=== PATIENT | female | born 1975 | race American Indian/Alaskan Native ===

== ENCOUNTER 2016-10-07 19:16 | Emergency (ER) | payer BC | END 2016-10-07 19:34 | disposition left against medical advice (07) | LOC: ED 19:16 | DX: T22.011A Burn of unspecified degree of right forearm, initial encounter (principal); Z53.21 Procedure and treatment not carried out due to patient leaving prior to being seen by health care provider; X08.8XXA Exposure to other specified smoke, fire and flames, initial encounter; Y93.89 Activity, other specified; Y99.8 Other external cause status; Y92.89 Other specified places as the place of occurrence of the external cause ==

== ENCOUNTER 2016-12-10 11:50 | Outpatient (CLI) | payer BC ==
--- NOTE | 2016-12-10 14:17 | Mammography Report ---
IMPLANT MAMMOGRAM with CAD: History: Cancer screening. Comparison study is dated February 19, 2015. Bilateral breast imaging was done with standard and displacement technique. Parenchyma is symmetrically seen ventral to each implant. The implant contours are smooth. No suspicious findings or secondary signs of malignancy are seen. CONCLUSION: Negative implant mammogram. RECOMMENDATION: Routine follow-up. BI-RADS CATEGORY: 1 = Negative ACR BI-RADS MAMMOGRAPHIC CODES: 0 = Needs additional imaging evaluation; 1 = Negative; 2 = Benign; 3 = Probably benign; 4 = Suspicious; 5 = Malignant; 6 = Known biopsy-proven malignancy COMMENT: 1. Dense breast tissue, i.e., adenosis, fibrocystic changes, etc., may obscure an underlying neoplasm. 2. Approximately 10% of cancers are not detected with mammography. 3. A negative mammography report should not delay biopsy if a clinically suspicious mass is present. Comment: Patient follow up letters are generated in [facility].
== END 2016-12-10 11:51 | disposition home or self-care (01) ==
LOC: MAMMO 11:50
PROVIDERS: ATTEND Internal Medicine
DX: Z12.31 Encounter for screening mammogram for malignant neoplasm of breast (principal); Z98.82 Breast implant status
CPT/HCPCS: 77067; G0202

== ENCOUNTER 2017-01-25 06:28 | Emergency (ER) | payer BC ==
[2017-01-25 07:10] LABS: Basophils % (Auto) 0.5 % (0.0-1.8); Eosinophils % (Auto) 1.9 % (0.0-4.3); Hematocrit 35.8 % (30.3-42.9); Hemoglobin 11.8 gm/dl (10.1-14.3); Mean Corpuscular HGB Conc 33 % (30-34); Mean Corpuscular Hemoglobin 27 pg (28-32); Mean Corpuscular Volume 82 fl (79-97); Platelet Count 337 K/mm3 (140-440); Red Blood Count 4.35 M/mm3 (3.65-5.03); Red Cell Distribution Width 13.8 % (13.2-15.2); White Blood Count 8.5 K/mm3 (4.5-11.0)
[2017-01-25 07:27] LABS: Anion Gap 16 mmol/L; BUN/Creatinine Ratio 14; Blood Urea Nitrogen 10 mg/dL (7-17); Calcium 8.6 mg/dL (8.4-10.2); Carbon Dioxide 24 mmol/L (22-30); Glucose 89 mg/dL (65-100); Potassium 4.1 mmol/L (3.6-5.0); Sodium 140 mmol/L (137-145)
--- NOTE | 2017-01-25 08:43 | Emergency Department Report ---
ED General Adult HPI - General Chief complaint: Headache Stated complaint: HEAD PAIN Time Seen by Provider: 01/25/17 08:41 Source: patient Mode of arrival: Ambulatory Limitations: No Limitations - History of Present Illness Initial comments: Patient is a 41-year-old female no significant past medical history who presents with a buzzing sensation in her ears. Patient states that the sensation has been going on and off for the last several months. Patient states that it got worse the last 3 days. Patient states that she has a minor headache located in the back of her head is a 2/10 doesn't radiate and it occurs intermittently his was gradual. Patient denies having any nausea or vomiting. Patient denies having any vision changes. Severity scale (0 -10): 0 - Related Data Allergies Allergy/AdvReac Type Severity Reaction Status Date / Time lisinopril Allergy Swelling Unverified 12/10/16 11:51 ED Review of Systems ROS: Stated complaint: HEAD PAIN Other details as noted in HPI Constitutional: denies: chills, fever Eyes: denies: eye pain, eye discharge, vision change ENT: denies: ear pain, throat pain Respiratory: denies: cough, shortness of breath, wheezing Cardiovascular: denies: chest pain, palpitations Endocrine: no symptoms reported Gastrointestinal: denies: abdominal pain, nausea, diarrhea Genitourinary: denies: urgency, dysuria, discharge Musculoskeletal: denies: back pain, joint swelling, arthralgia Skin: denies: rash, lesions Neurological: as per HPI. denies: headache, weakness, paresthesias Psychiatric: denies: anxiety, depression Hematological/Lymphatic: denies: easy bleeding, easy bruising ED Past Medical Hx - Past Medical History Previous Medical History?: Yes Hx Hypertension: Yes Additional medical history: Sleep apnea - Surgical History Past Surgical History?: Yes Additional Surgical History: myomectomy, breast augmentation - Social History Smoking Status: Current Every Day Smoker Substance Use Type: None ED Physical Exam - General Limitations: No Limitations General appearance: alert, in no apparent distress - Head Head exam: Present: atraumatic, normocephalic - Eye Eye exam: Present: normal appearance - ENT ENT exam: Present: mucous membranes moist - Neck Neck exam: Present: normal inspection - Respiratory Respiratory exam: Present: normal lung sounds bilaterally. Absent: respiratory distress - Cardiovascular Cardiovascular Exam: Present: regular rate, normal rhythm. Absent: systolic murmur, diastolic murmur, rubs, gallop - GI/Abdominal GI/Abdominal exam: Present: soft, normal bowel sounds - Extremities Exam Extremities exam: Present: normal inspection - Back Exam Back exam: Present: normal inspection - Neurological Exam Neurological exam: Present: alert, oriented X3 - Psychiatric Psychiatric exam: Present: normal affect, normal mood - Skin Skin exam: Present: warm, dry, intact, normal color. Absent: rash ED Course Vital Signs 01/25/17 01/25/17 01/25/17 06:35 06:38 07:54 Temperature 97.8 F 97.8 F Pulse Rate 69 69 Respiratory 18 Rate Blood Pressure 136/76 136/76 O2 Sat by Pulse 99 99 98 Oximetry 01/25/17 01/25/17 08:00 08:30 Temperature Pulse Rate Respiratory Rate Blood Pressure 133/71 129/69 O2 Sat by Pulse 99 100 Oximetry ED Medical Decision Making - Lab Data Result diagrams: 01/25/17 06:58 01/25/17 06:58 Lab Results 01/25/17 01/25/17 01/25/17 Range/Units 06:58 06:58 06:58 WBC 8.5 (4.5-11.0) K/mm3 RBC 4.35 (3.65-5.03) M/mm3 Hgb 11.8 (10.1-14.3) gm/dl Hct 35.8 (30.3-42.9) % MCV 82 (79-97) fl MCH 27 L (28-32) pg MCHC 33 (30-34) % RDW 13.8 (13.2-15.2) % Plt Count 337 (140-440) K/mm3 Lymph % (Auto) 24.3 (13.4-35.0) % [place] % (Auto) 7.3 (0.0-7.3) % Eos % (Auto) 1.9 (0.0-4.3) % Baso % (Auto) 0.5 (0.0-1.8) % Lymph # 2.1 (1.2-5.4) K/mm3 [place] # 0.6 (0.0-0.8) K/mm3 Eos # 0.2 (0.0-0.4) K/mm3 Baso # 0.0 (0.0-0.1) K/mm3 Seg Neutrophils % 66.0 (40.0-70.0) % Seg Neutrophils # 5.6 (1.8-7.7) K/mm3 Sodium 140 (137-145) mmol/L Potassium 4.1 (3.6-5.0) mmol/L Chloride 104.0 (98-107) mmol/L Carbon Dioxide 24 (22-30) mmol/L Anion Gap 16 mmol/L BUN 10 (7-17) mg/dL Creatinine 0.7 (0.7-1.2) mg/dL Estimated GFR > 60 ml/min BUN/Creatinine Ratio 14 % Glucose 89 (65-100) mg/dL Calcium 8.6 (8.4-10.2) mg/dL Troponin T < 0.010 (0.00-0.029) ng/mL - EKG Data -: EKG Interpreted by Me - EKG Data 01/25/17 09:50 Age he shows normal sinus rhythm with no ST segment elevation normal axis no T wave inversion. - Radiology Data Radiology results: report reviewed, image reviewed CT head: Shows no acute intracranial process. - Medical Decision Making Chief medical diagnosis: Tension headache Differential medical diagnosis: Subdural hematoma, migraine headache, labyrinthitis, , electrolyte abnormality I will get CBC, CMP, CT head, EKG and troponin Patient's CT head is within normal limits patient currently denies any pain and states that the problem has been going on for several months. Due to this she can follow up with her primary care doctor. Discussed plan with patient and patient agrees. Additional verbal discharge instructions were given. Critical care attestation.: If time is entered above; I have spent that time in minutes in the direct care of this critically ill patient, excluding procedure time. ED Disposition Clinical Impression: Tinnitus of both ears, Tension headache Disposition: DC-01 TO HOME OR SELFCARE Is pt being admited?: No Does the pt Need Aspirin: No Condition: Stable Instructions: Tension Headache (ED) Referrals: IWLL FISH MD [Staff Physician] - 3-5 Days
[2017-01-25 08:56] VITALS: BP 129/69
--- NOTE | 2017-01-25 09:18 | Cat Scan Report ---
CT HEAD WITHOUT CONTRAST INDICATION: Headache. COMPARISON: None similar. FINDINGS: Noncontrast head CT demonstrates mild bifrontal sulcal prominence/enlargement, extending towards the vertex, though may overall be age-appropriate. Normal ventricles. No definite acute infarct, hemorrhage, mass effect or midline shift. Approximately 4 mm right insular hypodensity, axial image 12, series 2 nonspecific, presumed old ischemic. No abnormal extra axial fluid collections. Normal posterior fossa with preserved basilar cisterns. Hypoplastic frontal sinuses bilaterally. Clear remainder imaged paranasal sinuses and mastoid air cells. Normal calvarium and scalp. Few radiopaque dental material. CONCLUSION: No acute intracranial CT abnormality, as described. Thank you for the opportunity to participate in this patient's care.
== END 2017-01-25 10:04 | disposition home or self-care (01) ==
LOC: ED 06:28
DX: H93.13 Tinnitus, bilateral (principal); G44.209 Tension-type headache, unspecified, not intractable; I10 Essential (primary) hypertension; F17.200 Nicotine dependence, unspecified, uncomplicated; Z88.8 Allergy status to other drugs, medicaments and biological substances
CPT/HCPCS: 36415; 70450; 80048; 84484; 85025; 93005; 93010

== ENCOUNTER 2017-10-18 07:58 | Outpatient (CLI) | payer BC ==
--- NOTE | 2017-10-18 10:45 | Ultrasound Report ---
BILATERAL DIGITAL AUGMENTED DIAGNOSTIC MAMMOGRAM WITH CAD: 10/18/17 07:58:00 CLINICAL: Right breast pain. COMPARISON:12/10/16 FINDINGS: Bilateral MLO and CC views with and without implant displacement demonstrate relatively Predominantly fatty breasts (<25% fibroglandular) with a few bilateral residual fibroglandular densities. No mass, architectural distortion or suspicious calcifications. Intact subpectoral implants. Ultrasound of the right breast (including all four quadrants and the retroareolar area) was performed and demonstrated normal mostly fatty structures. No mass, cyst or shadowing. The right breast implant is intact. IMPRESSION: No mammographic evidence of malignancy and no explanation for right breast pain. BI-RADS CATEGORY: 2 - - Benign RECOMMENDATION: Clinical followup and routine mammographic screening in one year.
== END 2017-10-18 07:59 | disposition home or self-care (01) ==
LOC: SPVWC 07:58
PROVIDERS: ATTEND Internal Medicine
DX: N64.4 Mastodynia (principal); R92.2 Inconclusive mammogram; F17.210 Nicotine dependence, cigarettes, uncomplicated; I10 Essential (primary) hypertension
CPT/HCPCS: 77066

== ENCOUNTER 2018-06-24 05:50 | Observation (INO) | payer BC ==
--- NOTE | 2018-06-20 11:33 | Anesthesia Consultation ---
Anesthesia Consult and Med Hx Date of service: 06/24/18 - Airway Anesthetic Teeth Evaluation: Good ROM Head & Neck: Adequate Mental/Hyoid Distance: Adequate Mallampati Class: Class II Intubation Access Assessment: Probably Good - Pre-Operative Health Status ASA Pre-Surgery Classification: ASA3 Proposed Anesthetic Plan: General Nerve Block: TAP - Pulmonary Hx Smoking: Yes (Former) Hx Sleep Apnea: Yes - Cardiovascular System Hx Hypertension: Yes (Stress test 2yrs ago ok per pt; was GI related) - Central Nervous System Hx Psychiatric Problems: Yes (Anxiety, bipolar, ADD) - Hematic Hx Anemia: Yes - Other Systems Hx Cancer: No
[2018-06-20 11:38] LABS: Basophils % (Auto) 0.7 % (0.0-1.8); Eosinophils # (Auto) 0.1 K/mm3 (0.0-0.4); Eosinophils % (Auto) 1.7 % (0.0-4.3); Hematocrit 33.8 % (30.3-42.9); Hemoglobin 10.6 gm/dl (10.1-14.3); Lymphocytes # (Auto) 2.3 K/mm3 (1.2-5.4); Lymphocytes % (Auto) 30.9 % (13.4-35.0); Mean Corpuscular HGB Conc 32 % (30-34); Mean Corpuscular Volume 74 fl (79-97); Monocytes # (Auto) 0.6 K/mm3 (0.0-0.8); Monocytes % (Auto) 8.6 % (0.0-7.3); Platelet Count 405 K/mm3 (140-440); Red Blood Count 4.58 M/mm3 (3.65-5.03)
[2018-06-20 11:43] LABS: Red Cell Distribution Width 21.6 % (13.2-15.2)
[2018-06-20 11:53] LABS: BUN/Creatinine Ratio 13; Blood Urea Nitrogen 9 mg/dL (7-17); Calcium 9.1 mg/dL (8.4-10.2); Hemolysis Index 5
--- NOTE | 2018-06-23 13:08 | History and Physical Report ---
History of Present Illness Date of examination: 06/20/18 History of present illness: Patient has been reassessed/reevaluated. H&P has been reviewed. No interval changes. This is a 42 years old female who complains of menorrhagia, dysmenorrhea and pelvic pain, but denies abnormal pap smears, metrorrhagia, dyspareunia, post- coital bleeding, abnormal periods, abnormal vaginal discharge, breast mass or lumps, depression, anxiety, urinary symptoms, chest pain, palpitations, shortness of breath, leg swelling, back pain, abdominal pain, headaches and bowel problems. The patient notes that she is sexually active. The patient reports that she has regular menses. She complains of heavy bleeding, dysmenorrhea, clotting, history of fibroids, fatigue and cramping. The patient also presents with uterine fibroids. She complains of menorrhagia and intermenstrual bleeding. Treatment tried to date includes myomectomy and NSAIDs. Prior to today's visit the patient has had US of pelvis and sonohysterogram which revealed a 4cm posterior myoma. Patient's symptoms when present disrupts her normal daily activities Patient desires to retain future fertility. She desires myomectomy Vital Signs: Patient Profile: 42 Years Old Female LMP: 04/28/2018 Height: 64 inches (162.56 cm) Weight: 249 pounds (113.18 kg) BMI: 42.74 BSA: 2.15 Menstrual History: LMP (date): 04/28/2018 LMP - Character: heavy Menarche: 14 Menses interval: 28-30 days Menstrual flow: 7 days Current Method of Contraception: None Past History : 1 Term Births: 1 Premature Births: 0 Living Children: 1 Para: 1 Mult. Births: 0 Prev : 0 Aborta: 0 Elect. Ab: 0 Spont. Ab: 0 Ectopics: 0 YEAST PUMPER History Operations: Hysteroscopy:Myomectomy (12/2015) Hysteroscopy:Myomectomy (01/2016) Breast Augmentation: (1999) Abnormal PAP: positive Uterine Anomaly: positive Infection History HIV Risk Eval: no Hep B Immunized: no TB exposure: no Personal hx. of genital herpes: no Hx of STD: Trichomonas Current Allergies (reviewed today): WELLBUTRIN SR (BUPROPION HCL [id number]) (Critical) Past Medical History: Sleep Apnea Bipolar Disease Fibroids Hypertension Anemia (04/2018) Past Surgical History: Hysteroscopy:Myomectomy (12/2015) Hysteroscopy:Myomectomy (01/2016) Breast Augmentation: (1999) Family History Summary: Other family member - Has No Family History of Ovarvian Cancer - Entered On: 05/16/2018 Other family member - Has No Family History of Colon Cancer - Entered On: 05/16/2018 Other family member - Has No Family History of Breast Cancer - Entered On: 05/16/2018 Other family member - Has Family History of Hypertension - Entered On: 05/16/2018 Other family member - Has Family History of Diabetes - Entered On: 05/16/2018 Other family member - Has Family History of CVA or Stroke - Entered On: 05/16/2018 Other family member - Has Family History of Bleeding disorder - Entered On: 05/16/2018 Social History: Marital Status: Children: 1 Occupation: homemaker Smoking History: Patient has never smoked. Risk Factors: Smoked Tobacco Use: Former smoker Cigarettes: Yes Year started: 1992 Year quit: 2014 Years Since Last Quit: 4 Smokeless Tobacco Use: Never Passive smoke exposure: no Drug use: no HIV high-risk behavior: no Alcohol use: no Exercise: no Seatbelt use: 100 % Review of Systems General Complains of fatigue. Denies fever, chills, sweats, anorexia, weakness, malaise, weight loss and sleep disorder. Complains of menorrhagia, pelvic pain and painful periods. Denies vaginal discharge, incontinence, dysuria, hematuria, urinary frequen cy, amenorrhea, abnormal vaginal bleeding, genital sores, decreased libido, painful sex, urinary urgency, hot flashes, vaginal dryness, vaginal itching and vaginal odor. CV Denies chest pains, palpitations, syncope, dyspnea on exertion, orthopnea, PND and peripheral edema. Resp Denies cough, dyspnea at rest, excessive sputum, hemoptysis, wheezing and pleurisy. GI Denies nausea, vomiting, diarrhea, constipation, change in bowel habits, abdominal pain, melena, hematochezia, jaundice, gas/bloating, indigestion/heartburn, dysphagia and odynophagia. Breast Denies left breast lump, right breast lump, nipple discharge, bloody discharge from nipple, breast pain, abnormal mammogram and breast enlargement. Psych Complains of anxiety. Denies depression, irritability and mood swings. Past History Past Medical History: other (See HPI) Past Surgical History: Other (See HPI) Family history: other (See HPI) Medications and Allergies Allergies Allergy/AdvReac Type Severity Reaction Status Date / Time bupropion Allergy Hives Verified 06/17/18 16:15 lisinopril Allergy Swelling Verified 06/17/18 16:15 Home Medications Medication Instructions Recorded Confirmed Last Taken Type ALPRAZolam [Xanax] 1 mg PO BID 06/20/18 06/24/18 06/09/18 09:00 History ARIPiprazole [Abilify] 20 mg PO QHS 06/20/18 06/24/18 06/23/18 20:00 History FLUoxetine [PROzac] 20 mg PO QDAY 06/20/18 06/24/18 06/23/18 09:00 History Ferrous Sulfate 324 mg PO DAILY 06/20/18 06/24/18 06/23/18 09:00 History Ibuprofen 800 mg PO PRN PRN 06/20/18 06/24/18 06/19/18 09:00 History Labetalol [Normodyne] 200 mg PO BID 06/20/18 06/24/18 06/24/18 05:00 History Multivit-Min/Iron/Folic/Lutein 1 each PO DAILY 06/20/18 06/24/18 06/23/18 09:00 History [Centrum Silver Women Tablet] hydrALAZINE [Apresoline TAB] 10 mg PO BID 06/20/18 06/24/18 06/21/18 09:00 History lamoTRIgine [LaMICtal] 200 mg PO QHS 06/20/18 06/24/18 06/20/18 20:00 History traZODone [Desyrel] 100 mg PO QHS 06/20/18 06/24/18 06/23/18 20:00 History Active Meds: Active Medications Lactated Ringer's (Lactated Ringers) 1,000 mls @ 100 mls/hr IV DIRECT LASHAE Review of Systems Constitutional: other (See HPI) Exam - Physical Exam Narrative exam: HEENT: normocephalic, no lesions or deformities Skin no significant abnormal lesions or rashes Breasts: pendulous skin/areolae normal, no masses, no nipple discharge, no erythema/warmth/tenderness, and axillae normal. Implants palpated bilaterally Nipple piecing present on left Abdomen: Obese, normal bowel sounds, soft, nontender, no HSM Musculoskeletal: grossly normal ROM in joints, no joint tenderness or muscle weakness Neuro: no gross anomalities Extremities: no clubbing, cyanosis, or edema YEAST PUMPER Exams Vulva/Vagina: No lesions, normal BUS, normal rugae Cervix: No lesions; no cervical motion tenderness Uterus: unable to palpate due to obesity Adnexae: unable to palpate due to obesity Rectovaginal: exam defered - Constitutional Vitals: Temp Pulse Resp BP Pulse Ox 98.1 F 74 20 140/85 100 06/20/18 11:00 06/20/18 11:00 06/20/18 11:00 06/20/18 11:00 06/20/18 11:00 Results - Labs CBC & Chem 7: 06/20/18 10:53 06/20/18 10:53 Assessment and Plan - Patient Problems (1) Intramural leiomyoma of uterus Current Visit: No Status: Acute Plan to address problem: Diagnosis explained to patient . Questions answered. Discussed with patient various medical, surgical and radiological therapies common for treatment including myomectomy hysterectomy and uterine artery embolization Patient desires to retain future fertility. She desires myomectomy Patient desires robot ic myomectomy. Discuss the risks of the surgery including infection, bleeding possibly heavy enough to require a blood transfusion, possible damage to bowel, bladder or ureter. Patient understands that there is a possibility that a hysterectomy maybe indicated for severe bleeding not resoved with conservative measures. Patient advised the small risks of spreading of malignancy if morcellator is used during the surgery patient understands and approve of use if necessary Her questions were answered. Patient understands and desires to proceed (2) Menorrhagia with irregular cycle Current Visit: No Status: Acute Plan to address problem: Probably secondary to # 1 (3) Dysmenorrhea Current Visit: No Status: Acute Plan to address problem: Probably secondary to # 1 (4) Anemia Current Visit: No Status: Acute Qualifiers: Iron deficiency anemia type: chronic blood loss Plan to address problem: Probably secondary to # 2 (5) Bipolar disorder Current Visit: No Status: Chronic (6) BMI 39.0-39.9,adult Current Visit: No Status: Acute (7) Sleep apnea Current Visit: No Status: Acute (8) Hypertension Current Visit: No Status: Acute Qualifiers: Hypertension type: essential hypertension Qualified Code(s): I10 - Essential (primary) hypertension
[~2018-06-24 05:50] MED LIST: DILAUDID IV PRN; LACTATED RINGERS 1,000 ML IV SCH; NEURONTIN PO NR; SUBLIMAZE IV PRN; TRANSDERM-SCOP TD NR; TYLENOL PO NR; VERSED IV NR
[2018-06-24] MEDS ORDERED: BRIDION IV ONE ×2 (05:51→13:00)
[2018-06-24] MEDS ORDERED: NACL BACTERIOSTATIC INFILTRATI ONE (06:30)
[2018-06-24] MEDS ORDERED: Vasostrict ONE (06:47)
[2018-06-24] MEDS ORDERED: MARCAINE-EPI 0.25%-1:200,000 INFILTRATI ONE (06:47)
[2018-06-24] MEDS ORDERED: NACL 0.9% 100 ML ONE (06:47)
[2018-06-24] MEDS ORDERED: ANCEF/STERILE WATER 2 GM/20 ML 2 GM/20 ML SYRINGE IV NR (07:00)
[2018-06-24] MEDS ORDERED: NEURONTIN ONE (07:13)
[2018-06-24] MEDS ORDERED: VERSED ONE (07:14)
[2018-06-24] MEDS ORDERED: TYLENOL ONE (07:14)
[2018-06-24] MEDS ORDERED: SUBLIMAZE ONE ×2 (07:14→07:31)
[2018-06-24] MEDS ORDERED: DIPRIVAN 10 MG/ML IV ONE (07:31)
[2018-06-24] MEDS ORDERED: ZOFRAN ONE (07:33)
[2018-06-24] MEDS ORDERED: ZEMURON IV ONE ×2 (07:33→11:48)
[2018-06-24] MEDS ORDERED: XYLOCAINE MPF 2% ONE (07:33)
[2018-06-24] MEDS ORDERED: DECADRON ONE (07:33)
[2018-06-24] MEDS ORDERED: SUBLIMAZE IV PRN (08:21)
--- NOTE | 2018-06-24 08:21 | Anesthesia Day of Surgery ---
Anesthesia Day of Surgery - Day of Surgery Patient Examined: Yes Patient H&P Reviewed: Yes Patient is NPO: Yes
[2018-06-24] MEDS ORDERED: ACD-A 500 ML IV ONE (08:37)
[2018-06-24] MEDS ORDERED: Vasostrict IM ONE (09:49)
[2018-06-24] MEDS ORDERED: NACL 0.9% IR ONE ×2 (09:52)
[2018-06-24] MEDS ORDERED: TRIPLE ANTIBIOTIC TP ONE ×2 (10:49→22:35)
[2018-06-24] MEDS ORDERED: QUELICIN ONE (11:48)
[2018-06-24] MEDS ORDERED: ROBINUL ONE ×3 (11:48→12:11)
--- NOTE | 2018-06-24 12:32 | Operative Report ---
Operative Report Operative Report: Date of procedure: 06/24/2018 Pre-operative diagnosis: Symptomatic leiomyomata with menorrhalgia, dysmenorrhea and a history of anemia Post-operative diagnosis: Same Procedure name(s): Robotic-assisted myomectomy Surgeon: Sanjiv Mcallister MD Environmental Compliance Inspector: Shelly Ordoñez certified dental assistant Anesthesia: General endotracheal EBL: 100 mL Complications: None Findings: Uterus about 14-16 weeks in size with a large posterior myoma approximately 8-9 in diameter at 2 anterior myomas 3 and 4 cm in diameter had smaller half centimeter myomas anteriorly on the left and posteriorly on the right patient with normal tubes and ovaries bilaterally Specimen(s): Leiomyomata Procedure: Patient taken operating room where general endotracheal anesthesia was induced difficulty. She was placed in dorsal lithotomy position prepped and draped in usual normal sterile fashion for robotic procedure. The cath was placed in urinary bladder without difficulty speculum placed in the vagina. A medium V care uterine manipulator was placed without any difficulty. Then attention was switched to the patient's abdomen. Supra-umbilical incision was made with a knife. Spread with a hemostat. A 10-12 Trocar was placed in this incision while lifting out anterior abdominal wall under direct visualization. Intra- abdominal cavity was entered without any evidence of internal organ damage. Patient was insufflated approximately 3 and half liters of CO2 gas. Patient's pelvic findings noted above. The patient was perceived to be a candidate for robotic procedure. The robotic trocar incisions were made. On either side of the midline trocar placement approximately 8 cm also left lower quadrant the 8 mm robotic trocars was placed under direct visualization with no signs of internal organ damage. An 12 mm medical assistant instructor port were placed on the right lower quadrant 2 fingerbreadths above the iliac crest The da Paul robot was that on the patient's left side and normal fashion. At that time I my place under the operating mcdermott. Pitressin was placed at the base of the myomas approximately 10 cc on the large posterior myoma and 5 cc on the anterior myomas. Blanching was seen. The midline of posterior incision was made in the large posterior myoma was removed robotically with complaints and clearly seen and would use of the robotic scissors also robotic tenaculum and also tenaculum through the medical assistant instructor port is no evidence of entering of the endometrial cavity. The defect from removing the myoma was closed in layers with 0 V- lock and 3-0V- lock sutures. A baseball stitch was placed serosa. Attention was then switched to the 2 anterior myomas both sides with the scissors and removed in a similar manner with the defects closed using 3-0 V lock in sutures. All closures were hemostatic. 2 superficial myomas removed from with cautery and nose myomas were removed through the medical assistant instructor port. The large myomas were removed from with the morcellator under direct visualization with no evidence of adjacent organ damage. There were some small pieces of myoma that we collected after the mor cellation. The pelvis was copiously irrigated and found to be hemostatic. The suture lines were covered first with Flor for post operative hemostasis. Interceed was placed on the incisions to try to prevent future adhesions. All instruments were then removed. The large trocar sites were closed in layers with the 2-0 and 4-0 Vicryl the smaller trocar sites were closed subcuticular with 4-0 Vicryl. Patient tolerated procedure well and awakened in operating room to comfortably recovery room in good condition.
[2018-06-24] MEDS ORDERED: NORMODYNE IV ONE ×3 (13:27→13:54)
[2018-06-24] MEDS ORDERED: D5LR 1,000 ML IV ONE (13:46)
--- NOTE | 2018-06-24 14:24 | Post Anesthesia Evaluation ---
- Post Anesthesia Evaluation Patient Participated: Yes Airway Patent: Yes Stable Respiratory Function: Yes Nausea/Vomiting: No Temp > 96.8F: Yes Pain Manageable: Yes Adequeate Hydration: Yes Anesthesia Complications: No Block Receding Appropriately: Not Applicable Patient on Ventilator: No
[2018-06-24] MEDS ORDERED: ZOFRAN ODT PO PRN (15:15)
[2018-06-24] MEDS ORDERED: D5LR 1,000 ML IV SCH (15:15)
[2018-06-24] MEDS ORDERED: MILK OF MAGNESIA PO PRN (15:15)
--- NOTE | 2018-06-24 17:35 | Event Note ---
Date: 06/24/18 Day of surgery. Discuss operative findings with patient and questions answered. Patient without fever. Will ambulate in halls this evening. Good urine output. We'll remove Valenzuela this evening. We will continue routine postoperative care.
[2018-06-24] MEDS: ANCEF/NS 1 GM/50 ML 1 GM/50 ML BAG IV SCH (18:46)
[2018-06-24] MEDS: TORADOL IV SCH (18:49)
[2018-06-24] MEDS ORDERED: NON-FORMULARY (Lamotrigine [Lamictal] 200 MG) PO SCH (22:00)
[2018-06-24] MEDS ORDERED: LaMICtal PO SCH (22:00)
[2018-06-24] MEDS: APRESOLINE PO SCH (22:44)
[2018-06-24] MEDS: COLACE PO SCH (22:45)
[2018-06-24] MEDS: NORCO 5/325 PO PRN (22:45)
[2018-06-24] MEDS: NORMODYNE PO SCH (22:45)
[2018-06-25] MEDS: ANCEF/NS 1 GM/50 ML 1 GM/50 ML BAG IV SCH (01:29)
[2018-06-25] MEDS: TORADOL IV SCH (01:35)
[2018-06-25 04:46] LABS: Hematocrit 28.4 % (30.3-42.9); Hemoglobin 8.9 gm/dl (10.1-14.3)
[2018-06-25] MEDS: NORMODYNE PO SCH (10:10)
[2018-06-25] MEDS: COLACE PO SCH (10:11)
[2018-06-25] MEDS: APRESOLINE PO SCH (11:31)
--- NOTE | 2018-06-25 11:46 | Progress Note ---
Assessment and Plan - Patient Problems (1) S/P robot-assisted surgical procedure Current Visit: Yes Status: Acute Plan to address problem: -routine post op care -d/c home today (2) Hypertension Current Visit: No Status: Acute Qualifiers: Hypertension type: essential hypertension Qualified Code(s): I10 - Essential (primary) hypertension Plan to address problem: bp fairly controlled con't bp meds Subjective - Subjective Date of service: 06/25/18 Principal diagnosis: POD#1 s/p robotic assisted myomectomy Interval history: pt states she is doing well and ready to go home. No headaches, no blurry vision, no dizziness with ambulation. Pt tolerating a regular diet. Patient reports: appetite normal, voiding normally, pain well controlled, flatus, ambulating normally, no dizzy ambulation Objective - Vital Signs Latest vital signs: Vital Signs Temp Pulse Resp BP BP Pulse Ox 06/25/18 11:31 88 144/61 06/25/18 10:10 78 144/61 06/25/18 09:34 97.8 F 71 24 144/61 95 06/25/18 06:13 98.6 F 71 16 107/60 06/25/18 03:24 98.4 F 80 20 139/60 96 06/24/18 23:13 98.4 F 89 20 149/73 96 06/24/18 22:00 95 H 18 97 06/24/18 20:00 99.0 F 98 H 21 151/71 95 06/24/18 18:01 98.8 F 103 H 20 126/65 99 06/24/18 14:38 93 H 98 06/24/18 14:30 98.1 F 92 H 20 137/71 100 06/24/18 14:25 98.0 F 94 H 19 158/76 99 06/24/18 14:10 94 H 18 148/76 99 06/24/18 13:55 94 H 19 163/80 100 06/24/18 13:40 94 H 19 148/83 98 06/24/18 13:33 98 H 166/84 06/24/18 13:25 97.6 F 97 H 20 159/88 98 06/24/18 13:10 90 19 147/84 99 06/24/18 12:55 97.6 F 99 H 19 160/83 100 06/24/18 12:40 97.8 F 99 H 18 166/91 100 06/24/18 12:35 99 H 16 171/87 100 06/24/18 12:30 102 H 15 158/78 100 06/24/18 12:26 96.8 F L 102 H 9 L 141/118 100 Intake and Output 06/24/18 06/25/18 06/25/18 22:59 06:59 14:59 Intake Total 530 Output Total 1550 1100 Balance -1020 -1100 Intake: IV 50 ANCEF/NS 1 GM/50 ML 1 gm 50 In 50 ml @ 100 mls/hr IV Q8H REPLACED BY [facility] Rx#:[id number] Oral 240 Intake, Free Water 240 Output: Urine 1550 1100 Indwelling Catheter 1300 Void 250 1100 Other: Total, Intake Amount 240 Total, Output Amount 200 500 Voiding Method Toilet Toilet - Exam Breasts: Present: deferred Cardiovascular: Present: Normal S1, Normal S2 Lungs: Present: Clear to auscultation, Normal air movement Abdomen: Present: normal appearance, soft, guarding, normal bowel sounds. Absent: distention, tenderness Uterus: Present: other (unable to palpate due to body habitus) Extremities: Present: normal. Absent: tenderness, edema Deep Tendon Reflex Grade: Normal +2 Incision: Present: normal, dry, intact (open to air with surgical glue in place) - Labs Labs: Abnormal lab results 06/25/18 06/25/18 Range/Units 04:31 08:04 Hgb 8.9 L 9.0 L (10.1-14.3) gm/dl Hct 28.4 L 29.0 L (30.3-42.9) %
--- NOTE | 2018-06-25 11:46 | Discharge Summary ---
Providers - Providers Date of Admission: 06/24/18 12:11 Date of discharge: 06/25/18 Attending physician: SHERICE MURILLO Primary care physician: JOYCE MOELLER Hospitalization Reason for admission: other (myomectomy) Procedure: other (RA myomectomy) Procedure details: see op note Incision: normal, dry, intact Hospital course: pt admitted for myomectomy. Pt had routine post op care.Post op course was not complicated. Pt will be d/c home today with f/u with Dr. Murillo next week. Condition at discharge: Good Disposition: DC-01 TO HOME OR SELFCARE Plan - Discharge Medications Prescriptions: Ferrous Sulfate [Feosol 325 MG tab] 325 mg PO BID #60 tablet Ibuprofen [Motrin 800 MG tab] 800 mg PO Q6H PRN #30 tablet PRN Reason: Pain oxyCODONE /ACETAMINOPHEN [Percocet 5/325 mg] 1 - 2 tab PO Q4H PRN #30 tablet PRN Reason: Pain, Moderate - Provider Discharge Summary Activity: no sex for 6 weeks Diet: other Instructions: other Additional instructions: [] Smoking cessation referral if applicable(refer to patient education folder for contact #) [] Refer to [facility] Booklet Call your doctor immediately for: * Fever > 100.5 * Heavy vaginal bleeding ( >1 pad per hour) * Severe persistent headache * Shortness of breath * Reddened, hot, painful area to leg or breast * Drainage or odor from incision. * Keep incision clean and dry at all times and follow doctor's instructions regarding bathing/showering - Follow up plan Follow up: JOYCE MOELLER MD [Primary Care Provider] - 7 Days
[2018-06-25] MEDS: NORCO 5/325 PO PRN (12:44)
[2018-06-25 13:38] VITALS: BP 124/76
== END 2018-06-25 13:00 | disposition home or self-care (01) ==
LOC: OR 05:50 → OB 12:11
PROVIDERS: ADMIT Obstetrics & Gynecology; ATTEND Obstetrics & Gynecology
DX: D25.1 Intramural leiomyoma of uterus (principal); N92.1 Excessive and frequent menstruation with irregular cycle; N94.6 Dysmenorrhea, unspecified; F31.9 Bipolar disorder, unspecified; D64.9 Anemia, unspecified; G47.30 Sleep apnea, unspecified; I10 Essential (primary) hypertension; Z68.39 Body mass index [BMI] 39.0-39.9, adult; Z87.891 Personal history of nicotine dependence; Z82.49 Family history of ischemic heart disease and other diseases of the circulatory system; Z83.3 Family history of diabetes mellitus; Z82.3 Family history of stroke
CPT/HCPCS: 36415; 58145; 64450; 80048; 84703; 85014; 85018; 85025; 86850; 86900; 86901; 88305; 94660; 96365; 96366; 96375; 96376; A4217; C1765; C1782; G0378; J0330; J0690; J1100; J1885; J2250; J2405; J2704; J3010; J7120; J7121; 96372; A6250